=== PATIENT | male | born 1990 | race Caucasian/White ===

== ENCOUNTER 2017-04-02 17:17 | Emergency (ER) | payer SELFPAY ==
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
[2017-04-02 20:19] VITALS: BP 121/50
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
== END 2017-04-02 20:34 | disposition home or self-care (01) ==
LOC: ED 17:17
DX: S00.93XA Contusion of unspecified part of head, initial encounter (principal); R51 Headache; F17.210 Nicotine dependence, cigarettes, uncomplicated; V49.9XXA Car occupant (driver) (passenger) injured in unspecified traffic accident, initial encounter; Y93.9 Activity, unspecified; Y92.9 Unspecified place or not applicable
CPT/HCPCS: 70450; 70486; 71250; 72125; 99282